=== PATIENT | male | born 1965 | race Caucasian/White ===

== ENCOUNTER 2016-12-18 10:54 | Emergency (ER) | payer MEDICARE ==
--- NOTE | 2016-12-18 11:55 | RAD ---
RIGHT SHOULDER 3 VIEWS: Date: 12/18/16 HISTORY: Fall. Right shoulder pain. FINDINGS/IMPRESSION: No acute fracture or dislocation is identified. Degenerative changes present. POS: [id number]
== END 2016-12-18 11:46 | disposition home or self-care (01) ==
LOC: MADERS 10:54
DX: S40.011A Contusion of right shoulder, initial encounter (principal); I10 Essential (primary) hypertension; F17.210 Nicotine dependence, cigarettes, uncomplicated; Z21 Asymptomatic human immunodeficiency virus [HIV] infection status; Z79.899 Other long term (current) drug therapy; X58.XXXA Exposure to other specified factors, initial encounter

== ENCOUNTER 2019-06-03 05:48 | Emergency (ER) | payer MEDICARE, OTHER, MEDICAID | END 2019-06-03 06:22 | disposition home or self-care (01) | LOC: MADERS 05:48 | DX: K04.7 Periapical abscess without sinus (principal); K02.9 Dental caries, unspecified; I10 Essential (primary) hypertension; F17.210 Nicotine dependence, cigarettes, uncomplicated | CPT/HCPCS: 99283 ==

== ENCOUNTER 2020-11-12 13:46 | Emergency (ER) | payer MEDICARE, MEDICAID ==
[~2020-11-12 13:46] MED LIST: Iopamidol 370 76% 100 ML VIAL ONE
[2020-11-12 14:02] LABS: #Basophils 0.1 thou/uL (0.0-0.2); #Eosinphils 0.2 thou/uL (0.0-0.7); #Lymphocytes 1.4 thou/uL (1.20-3.40); #Monocytes 0.3 thou/uL (0.11-0.59); #Neutrophils 3.5 thou/uL (1.40-6.50); %Basophils 1.3 % (0.0-1.0); %Eosinophils 4.5 % (0.0-10.0); %Monocytes 5.4 % (0.0-10.0); %Neutrophils 63.8 % (42.0-75.0); Mean Corpuscular HGB CONC 33.1 g/dL (32.0-36.0); Mean Corpuscular Hemoglobin 29.4 pg (27.0-31.0); Mean Corpuscular Volume 88.9 fL (78.0-98.0); Mean Platelet Volume 8.2 fL (7.4-10.4); Platelet Count 206 thou/uL (130-400); RBC Distribution Width 11.3 % (11.5-14.5); Red Blood Cell (RBC) Count 5.08 mill/uL (4.70-6.10); White Blood Cell (WBC) Count 5.5 thou/uL (4.8-10.8)
[2020-11-12 14:12] LABS: INR-International Normal Ratio 0.9; Prothrombin Time 12.5 sec (12.0-14.7)
[2020-11-12 14:13] LABS: ALT (SGPT) 23 U/L (8-55); AST (SGOT) 32 U/L (5-34); Alkaline Phosphatase 130 U/L (40-110); Anion Gap 12 mmol/L (10-20); BUN (Urea Nitrogen) 17 mg/dL (8.4-25.7); Bilirubin, Total 0.6 mg/dL (0.2-1.2); Calc. Creatinine Clearance 0 mL/min (70-130); Calcium 8.3 mg/dL (7.8-10.44); Carbon Dioxide 21 mmol/L (22-29); Chloride 107 mmol/L (98-107); Globulin 2.8 g/dL (2.4-3.5); Glucose 104 mg/dL (70-105); Potassium 3.9 mmol/L (3.5-5.1); Protein, Total 6.8 g/dL (6.0-8.3); Sodium 136 mmol/L (136-145)
[2020-11-12] MEDS ORDERED: Morphine 4 MG/ML VIAL ONE (14:35)
[2020-11-12] MEDS ORDERED: Sodium Chloride 0.9% 1,000 ML ONE (14:35)
[2020-11-12 15:08] LABS: Bilirubin Negative (Negative); Blood, Urine Negative (Negative); Clarity Clear (Clear); Glucose, Urine (Dipstick) Negative (Negative); Ketone, Urine Negative (Negative); Leukocyte Negative (Negative); Nitrite Negative (Negative); Protein, Urine (Dipstick) Negative (Neg-Trace); Specific Gravity, Urine 1.015 (1.005-1.030); Urobilinogen 0.2 mg/dL (Less than 2); pH, Urine 6.5 (5.0-9.0)
[2020-11-12] MEDS ORDERED: Ketorolac Tromethamine 30 MG/ML VIAL ONE (15:13)
[2020-11-12] MEDS ORDERED: Ondansetron PF 4 MG/2 ML Vial ONE (15:13)
[2020-11-12 15:19] LABS: Amphetamine Detected (NotDetected); Barbiturates Screen Not Detected (NotDetected); Benzodiazepine Screen Not Detected (NotDetected); Cocaine Metabolite Screen Not Detected (NotDetected); Medtox Control Line Valid? VALID (VALID); Methadone Not Detected (NotDetected); Methamphetamine Detected (NotDetected); Opiate Screen Detected (NotDetected); Oxycodone Screen Not Detected (NotDetected); Phencyclidine (PCP) Not Detected (NotDetected); THC/Cannabinoid Screen Not Detected (NotDetected); Tricyclic Screen Not Detected (NotDetected)
== END 2020-11-12 16:07 | disposition home or self-care (01) ==
LOC: MADERS 13:46
DX: S06.0X0A Concussion without loss of consciousness, initial encounter (principal); S40.012A Contusion of left shoulder, initial encounter; M51.86 Other intervertebral disc disorders, lumbar region; F15.10 Other stimulant abuse, uncomplicated; R07.89 Other chest pain; R10.817 Generalized abdominal tenderness; Z21 Asymptomatic human immunodeficiency virus [HIV] infection status; I10 Essential (primary) hypertension; M19.90 Unspecified osteoarthritis, unspecified site; F17.290 Nicotine dependence, other tobacco product, uncomplicated; W11.XXXA Fall on and from ladder, initial encounter
CPT/HCPCS: 36415; 70450; 71260; 72125; 74177; 80053; 80306; 81003; 84484; 85025; 85610; 85730; 93005; 94760; 96374; 96375; G0390; J1885; J2270; J2405; J7050; Q9967

== ENCOUNTER 2020-12-01 14:45 | Emergency (ER) | payer MEDICARE, MEDICAID | END 2020-12-01 15:35 | disposition home or self-care (01) | LOC: MADERS 14:45 | DX: N45.1 Epididymitis (principal); Z21 Asymptomatic human immunodeficiency virus [HIV] infection status; I10 Essential (primary) hypertension; M19.90 Unspecified osteoarthritis, unspecified site; F17.290 Nicotine dependence, other tobacco product, uncomplicated; Z79.899 Other long term (current) drug therapy | CPT/HCPCS: 99283 ==

== ENCOUNTER 2021-05-16 16:28 | Emergency (ER) | payer MEDICARE, MEDICAID ==
[2021-05-16] MEDS ORDERED: Benzonatate 100 MG CAP ONE (17:30)
== END 2021-05-16 17:39 | disposition home or self-care (01) ==
LOC: MADERS 16:28
DX: R05 Cough (principal); Z20.822 Contact with and (suspected) exposure to COVID-19; R53.81 Other malaise; K21.9 Gastro-esophageal reflux disease without esophagitis; I10 Essential (primary) hypertension; Z21 Asymptomatic human immunodeficiency virus [HIV] infection status; M19.90 Unspecified osteoarthritis, unspecified site; F17.290 Nicotine dependence, other tobacco product, uncomplicated
CPT/HCPCS: 71045

== ENCOUNTER 2021-07-11 15:46 | Emergency (ER) | payer MEDICARE, MEDICAID ==
[2021-07-11] MEDS ORDERED: Ketorolac Tromethamine 60 MG/2 ML VIAL ONE (16:23)
[2021-07-11 19:01] LABS: Bilirubin Negative (Negative); Blood, Urine Negative (Negative); Clarity Clear (Clear); Glucose, Urine (Dipstick) Negative (Negative); Ketone, Urine Negative (Negative); Leukocyte Negative (Negative); Nitrite Negative (Negative); Protein, Urine (Dipstick) Trace mg/dL (Neg-Trace); Specific Gravity, Urine 1.015 (1.005-1.030)
== END 2021-07-11 20:31 | disposition home or self-care (01) ==
LOC: MADERS 15:46
DX: S39.012A Strain of muscle, fascia and tendon of lower back, initial encounter (principal); L02.415 Cutaneous abscess of right lower limb; R33.9 Retention of urine, unspecified; Z21 Asymptomatic human immunodeficiency virus [HIV] infection status; M19.90 Unspecified osteoarthritis, unspecified site; I10 Essential (primary) hypertension; F17.290 Nicotine dependence, other tobacco product, uncomplicated; W01.0XXA Fall on same level from slipping, tripping and stumbling without subsequent striking against object, initial encounter
CPT/HCPCS: 51702; 71045; 71046; 81003; 96372; J1885

== ENCOUNTER 2021-07-13 21:12 | Emergency (ER) | payer MEDICARE, MEDICAID ==
[~2021-07-13 21:12] MED LIST changes: -Iopamidol 370 76% 100 ML VIAL ONE; +Sodium Chloride 0.9% 1,000 ML BAG ONE
[2021-07-13 22:57] LABS: Bilirubin Small (Negative); Blood, Urine Moderate (Negative); Clarity Clear (Clear); Glucose, Urine (Dipstick) Negative (Negative); Ketone, Urine Negative (Negative); Leukocyte Negative (Negative); Nitrite Negative (Negative); Protein, Urine (Dipstick) 100 mg/dL (Neg-Trace); Urobilinogen > or = 8.0 mg/dL (Less than 2); pH, Urine 5.5 (5.0-9.0)
[2021-07-13 23:04] LABS: Bacteria/HPF Rare-Few HPF (None Seen); RBC/HPF 0-3 HPF (0-3); Squamous Epithelial 0-3 HPF (0-3)
[2021-07-13 23:05] LABS: Cocaine Metabolite Screen Not Detected (NotDetected); Methamphetamine Detected (NotDetected); Opiate Screen Not Detected (NotDetected); Phencyclidine (PCP) Not Detected (NotDetected); THC/Cannabinoid Screen Detected (NotDetected)
[2021-07-13 23:06] LABS: Amphetamine Detected (NotDetected); Barbiturates Screen Not Detected (NotDetected); Benzodiazepine Screen Not Detected (NotDetected); Medtox Control Line Valid? VALID (VALID); Methadone Not Detected (NotDetected); Oxycodone Screen Not Detected (NotDetected); Tricyclic Screen Not Detected (NotDetected)
[2021-07-13 23:14] LABS: ALT (SGPT) 18 U/L (8-55); AST (SGOT) 31 U/L (5-34); Albumin 3.3 g/dL (3.5-5.0); Alkaline Phosphatase 108 U/L (40-110); Anion Gap 14 mmol/L (10-20); BUN (Urea Nitrogen) 17 mg/dL (8.4-25.7); Bilirubin, Total 1.5 mg/dL (0.2-1.2); CK (CPK) 317 U/L (30-200); Calc. Creatinine Clearance 0 mL/min (70-130); Calcium 8.3 mg/dL (7.8-10.44); Carbon Dioxide 24 mmol/L (22-29); Chloride 93 mmol/L (98-107); Globulin 3.5 g/dL (2.4-3.5); Glucose 138 mg/dL (70-105); Magnesium 2.2 mg/dL (1.6-2.6); Potassium 3.6 mmol/L (3.5-5.1); Protein, Total 6.8 g/dL (6.0-8.3); Sodium 127 mmol/L (136-145)
[2021-07-13 23:22] LABS: Band 21 % (5-11); Hemoglobin 13.8 g/dL (14.0-18.0); Lymphocytes 5 % (21-51); MDiff Complete? YES; Mean Corpuscular HGB CONC 32.5 g/dL (32.0-36.0); Mean Corpuscular Volume 89.3 fL (78.0-98.0); Mean Platelet Volume 9.2 fL (7.4-10.4); Monocytes 6 % (0-10); Neutrophil 68 % (42-75); Platelet Count 157 thou/uL (130-400); RBC Distribution Width 12.8 % (11.5-14.5); Red Blood Cell (RBC) Count 4.75 mill/uL (4.70-6.10); Toxic Granulation SLIGHT; Vacuoles SLIGHT; White Blood Cell (WBC) Count 8.4 thou/uL (4.8-10.8)
== END 2021-07-14 00:19 | disposition home or self-care (01) ==
LOC: MADERS 21:12
DX: M79.10 Myalgia, unspecified site (principal); F15.20 Other stimulant dependence, uncomplicated; F14.10 Cocaine abuse, uncomplicated; F12.10 Cannabis abuse, uncomplicated; B20 Human immunodeficiency virus [HIV] disease; F17.290 Nicotine dependence, other tobacco product, uncomplicated
CPT/HCPCS: 80053; 80306; 81003; 81015; 82550; 83735; 85025; 87086; 99283; J7050

== ENCOUNTER 2023-04-13 01:21 | Emergency (ER) | payer OTHER, MEDICAID ==
[2023-04-13 01:54] LABS: #Basophils 0.1 thou/uL (0.0-0.2); #Eosinphils 0.2 thou/uL (0.0-0.7); #Lymphocytes 2.4 thou/uL (1.20-3.40); #Monocytes 0.5 thou/uL (0.11-0.59); #Neutrophils 1.9 thou/uL (1.40-6.50); %Basophils 1.6 % (0.0-1.0); %Lymphocytes 48.1 % (21.0-51.0); %Monocytes 9.4 % (0.0-10.0); %Neutrophils 36.9 % (42.0-75.0); Hematocrit 40.9 % (42.0-52.0); Hemoglobin 13.9 g/dL (14.0-18.0); Mean Corpuscular Hemoglobin 29.5 pg (27.0-31.0); Mean Corpuscular Volume 86.7 fl (78.0-98.0); Mean Platelet Volume 9.8 fL (7.4-10.4); Platelet Count 193 10x3/uL (130-400); RBC Distribution Width 11.8 % (11.5-14.5); Red Blood Cell (RBC) Count 4.72 mill/uL (4.70-6.10)
[2023-04-13 01:57] LABS: Bilirubin Negative (Negative); Blood, Urine Negative (Negative); Clarity Clear (Clear); Glucose, Urine (Dipstick) Negative (Negative); Ketone, Urine Negative (Negative); Leukocyte Negative (Negative); Nitrite Negative (Negative); Protein, Urine (Dipstick) Negative (Neg-Trace); Urobilinogen 0.2 mg/dL (Less than 2); pH, Urine 5.5 (5.0-9.0)
[2023-04-13] MEDS ORDERED: Sodium Chloride 0.9% 1,000 ML ONE (01:59)
[2023-04-13 02:01] LABS: CAUTI Indications for Culture Immunosuppressed; RBC/HPF None Seen HPF (0-3); Squamous Epithelial 0-3 HPF (0-3); WBC/HPF None Seen HPF (0-3)
[2023-04-13 02:02] LABS: Urine Culture Reflex Yes Yes
[2023-04-13 02:16] LABS: Troponin I 0.014 ng/mL (< 0.028)
[2023-04-13 02:17] LABS: ALT (SGPT) 33 U/L (8-55); AST (SGOT) 38 U/L (5-34); Albumin 3.8 g/dL (3.5-5.0); Alkaline Phosphatase 115 U/L (40-110); Anion Gap 14 mmol/L (10-20); BUN (Urea Nitrogen) 16 mg/dL (8.4-25.7); Bilirubin, Total 0.9 mg/dL (0.2-1.2); CK (CPK) 100 U/L (30-200); Calc. Creatinine Clearance 0 mL/min (70-130); Calcium 8.4 mg/dL (7.8-10.44); Carbon Dioxide 23 mmol/L (22-29); Chloride 103 mmol/L (98-107); Estimated GFR 82; Globulin 3.2 g/dL (2.4-3.5); Glucose 114 mg/dL (70-105); Lipase 53 U/L (8-78); Potassium 3.7 mmol/L (3.5-5.1); Sodium 136 mmol/L (136-145)
[2023-04-13 04:19] LABS: Troponin I 0.015 ng/mL (< 0.028)
[2023-04-13] MEDS ORDERED: Iopamidol 370 76% 100 ML VIAL ONE (10:53)
== END 2023-04-13 04:57 | disposition home or self-care (01) ==
LOC: MADERS 01:21
DX: R42 Dizziness and giddiness (principal); R07.9 Chest pain, unspecified; R06.00 Dyspnea, unspecified; I10 Essential (primary) hypertension; F17.210 Nicotine dependence, cigarettes, uncomplicated
CPT/HCPCS: 70450; 71045; 71275; 80053; 81001; 82550; 83690; 83735; 83880; 84484; 85025; 85379; 87086; 93005; J7050; Q9967

== ENCOUNTER 2023-10-27 17:36 | Emergency (ER) | payer OTHER, MEDICAID ==
[2023-10-27] MEDS ORDERED: Benzonatate 100 MG CAP ONE (18:17)
[2023-10-27] MEDS ORDERED: Ipratropium/Albuterol 3 ML NEB ONE (18:17)
== END 2023-10-27 19:24 | disposition home or self-care (01) ==
LOC: MADERS 17:36
DX: G93.31 Postviral fatigue syndrome (principal); B20 Human immunodeficiency virus [HIV] disease; I10 Essential (primary) hypertension; Z87.891 Personal history of nicotine dependence; Z79.899 Other long term (current) drug therapy
CPT/HCPCS: 71045; 94640; J7620

== ENCOUNTER 2023-11-14 05:27 | Emergency (ER) | payer MEDICAID, OTHER ==
[2023-11-14] MEDS ORDERED: Tetracaine 0.5% PF 4 ML BOT ONE (06:08)
[2023-11-14] MEDS ORDERED: Fluorescein Opthalmic Strip ONE (06:09)
== END 2023-11-14 06:34 | disposition home or self-care (01) ==
LOC: MADERS 05:27
DX: H10.211 Acute toxic conjunctivitis, right eye (principal); L03.213 Periorbital cellulitis; I10 Essential (primary) hypertension; F17.210 Nicotine dependence, cigarettes, uncomplicated
CPT/HCPCS: 99283

== ENCOUNTER 2024-06-01 03:59 | Emergency (ER) | payer MEDICAID, OTHER, SELFPAY ==
[2024-06-01] MEDS ORDERED: Penicillin V Potassium 250 MG TAB ONE (05:02)
== END 2024-06-01 05:15 | disposition home or self-care (01) ==
LOC: MADERS 03:59
DX: S00.512A Abrasion of oral cavity, initial encounter (principal); K12.2 Cellulitis and abscess of mouth; I10 Essential (primary) hypertension; F17.210 Nicotine dependence, cigarettes, uncomplicated; Y04.2XXA Assault by strike against or bumped into by another person, initial encounter
CPT/HCPCS: 99283

== ENCOUNTER 2025-05-01 02:21 | Emergency (ER) | payer OTHER, MEDICAID ==
[2025-05-01] MEDS ORDERED: Acetaminophen 500 MG TAB ONE (02:36)
== END 2025-05-01 03:07 | disposition home or self-care (01) ==
LOC: MADERS 02:21
DX: U07.1 COVID-19 (principal); I10 Essential (primary) hypertension; J44.9 Chronic obstructive pulmonary disease, unspecified; F17.290 Nicotine dependence, other tobacco product, uncomplicated; F17.210 Nicotine dependence, cigarettes, uncomplicated
CPT/HCPCS: 71045; 87426